=== PATIENT | female | born 2000 | race Caucasian/White ===

== ENCOUNTER 2024-04-10 02:46 | Emergency (ER) | payer SELFPAY ==
[~2024-04-10] VITALS: Ht 162.6 cm; Wt 52.0 kg
[2024-04-10 02:57] VITALS: BP 143/94; PULSE 86; TEMP 97.8; O2SAT 95
[2024-04-10 03:17] LABS: CLARITY URINE CLEAR (CLEAR); COLOR URINE YELLOW (YELLOW); GLUCOSE URINE NEGATIVE (NEGATIVE); KETONES URINE NEGATIVE (NEGATIVE); LEUKOCYTE ESTERASE URINE NEGATIVE (NEGATIVE); NITRITE URINE NEGATIVE (NEGATIVE); OCCULT BLOOD URINE NEGATIVE (NEGATIVE); PH URINE 5.5 (4.5-8.0); PROTEIN URINE NEGATIVE (NEGATIVE); SPECIFIC GRAVITY URINE 1.014 (1.005-1.030)
[2024-04-10 06:23] LABS: CARBON DIOXIDE 27 mEq/L (21-32); CHLORIDE 108 mEq/L (98-107); POTASSIUM 3.9 mEq/L (3.5-5.1); SODIUM 141 mEq/L (136-145)
[2024-04-10 06:24] LABS: CALCIUM 9.7 mg/dL (8.7-10.4)
[2024-04-10 06:29] LABS: CREATININE 0.7 mg/dL (0.6-1.0); GLUCOSE 92 mg/dL (70-105); UREA NITROGEN BLOOD 5 mg/dL (9-23)
[2024-04-10 06:30] LABS: BASOPHILS % 0.7 % (0.0-2.0); EOSINOPHILS % 3.2 % (0.0-5.0); HEMOGLOBIN. 13.2 g/dL (12.0-16.0); LYMPHOCYTES % 35.4 % (20.0-50.0); MEAN CORPUSCULAR HEMOGLOBIN 29.9 pg (28.0-32.0); MEAN CORPUSCULAR HGB CONC 33.8 g/dL (31.0-37.0); MEAN CORPUSCULAR VOLUME 88.6 fL (81.0-99.0); MONOCYTES % 6.5 % (2.0-8.0); NEUTROPHILS % 54.2 % (40.0-76.0); PLATELET 271 x1000/uL (130-400); RED CELL DISTRIBUTION WIDTH 12.1 % (11.6-14.6); WHITE BLOOD COUNT 7.3 x1000/uL (4.5-11.0)
[2024-04-10 06:52] LABS: B-HCG QUANTITATIVE < 1 mIU/mL (<3)
[2024-04-10] MEDS ORDERED: ACET-2708 PO (07:09)
[2024-04-10 07:10] VITALS: RESP 17
== END 2024-04-10 07:59 | disposition home or self-care (01) ==
LOC: ER 02:46
DX: N92.0 Excessive and frequent menstruation with regular cycle (principal); R10.2 Pelvic and perineal pain
CPT/HCPCS: 36415; 76801; 80048; 81003; 81025; 84702; 85025; 86850; 86900; 99284

== ENCOUNTER 2024-04-18 14:46 | Emergency (ER) | payer MEDICAID ==
[~2024-04-18] VITALS: Ht 162.6 cm; Wt 52.0 kg
[~2024-04-18 14:46] MED LIST: ACET-2708 PO
[2024-04-18 15:19] VITALS: BP 121/74; PULSE 83; RESP 18; TEMP 98.8; O2SAT 100
[2024-04-18] MEDS ORDERED: LIDO700A15 TP (19:56)
[2024-04-18] MEDS ORDERED: METH-653 MT (19:56)
[2024-04-18] MEDS ORDERED: IBUP-2028 MT (19:56)
== END 2024-04-18 19:55 | disposition home or self-care (01) ==
LOC: ER 14:46
DX: R51.9 Headache, unspecified (principal); R42 Dizziness and giddiness; H53.8 Other visual disturbances; V43.62XA Car passenger injured in collision with other type car in traffic accident, initial encounter; Y93.89 Activity, other specified; Y92.89 Other specified places as the place of occurrence of the external cause; Y99.8 Other external cause status
CPT/HCPCS: 99284